=== PATIENT | male | born 1945 | race Caucasian/White ===

== ENCOUNTER 2020-11-28 22:39 | Observation (INO) | payer OTHER ==
[~2020-11-28] VITALS: Ht 182.9 cm; Wt 98.9 kg
[2020-11-28 22:40] VITALS: BP 140/83
[2020-11-28] MEDS ORDERED: PRINIVIL20 M1 PO (22:46)
[2020-11-28] MEDS ORDERED: SIMVASTATIN80 MG PO (22:46)
[2020-11-28] MEDS ORDERED: TRIAMTERENE/HCT1 CA1 PO (22:47)
[2020-11-28 23:01] LABS: HEMATOCRIT 46.2 % (42.0-52.0); MCH 31.7 pg (26.0-34.0); MCHC 34.7 g/dL (28.0-37.0); MCV 91.3 fL (80.0-100.0); MPV 8.2 fl. (7.2-11.1); NUCLEATED RBCS 0 /100WBC; PLATELET COUNT* 283 thou/uL (150-400); RBC 5.06 mil/uL (4.50-6.00); RDW-CV 12.9 % (10.5-14.5); WBC 19.3 thou/uL (4.0-11.0)
[2020-11-28 23:11] LABS: PROTIME 10.5 Seconds (9.20-11.50)
[2020-11-28 23:17] LABS: ALBUMIN 3.8 g/dL (3.4-5.0); CALCIUM 9.9 mg/dL (8.5-10.1); CREATININE 1.1 mg/dL (0.6-1.3); MAGNESIUM 1.9 mg/dL (1.8-2.4); POTASSIUM 3.5 mmol/L (3.5-5.1); TOTAL BILIRUBIN 1.5 mg/dL (<0.1-1.0); TOTAL PROTEIN 7.4 g/dL (6.4-8.2)
[2020-11-28 23:25] LABS: ABSOLUTE MONOCYTES 0.8 thou/uL (0.0-1.2); ABSOLUTE NEUTROPHILS 17.6 thou/uL (1.6-8.1); PLATELET ESTIMATE ADEQUATE; TOXIC GRANULATION 1+
[2020-11-28 23:26] LABS: CLUMPED PLTS OCCASIONAL
[2020-11-29 02:01] LABS: URINE BILIRUBIN NEGATIVE (Negative); URINE BLOOD NEGATIVE (Negative); URINE CLARITY CLEAR; URINE COLOR YELLOW; URINE GLUCOSE-RANDOM NEGATIVE (Negative); URINE KETONES 2+ (Negative); URINE LEUKOCYTES-REFLEX NEGATIVE (Negative); URINE NITRITE-REFLEX NEGATIVE (Negative); URINE PROTEIN NEGATIVE (Negative); URINE SPECIFIC GRAVITY 1.015 (1.005-1.030); URINE UROBILINOGEN 0.2 E.U./dl (0.2-1.0)
[2020-11-29 02:15] VITALS: BP 158/95
[2020-11-29 03:35] VITALS: BP 155/99
--- NOTE | 2020-11-29 05:46 | NUR ---
PT ARRIVED TO THE UNIT AT 0230 WITH FAMILY. A&O X 4. FENTANYL GIVEN FOR PAIN. NO C/O NAUSEA. PT UP TO THE BR WITH SBA. STEADY GAIT. HAD LIQUIDY BM THIS MORNING. NPO. IVF INFUISING ORDERED. CALL LIGHT WITHIN REACH. WILL CONTINUE TO MONITOR.
[2020-11-29] MEDS ORDERED: FLAGYL500 M1 PO (09:14)
[2020-11-29] MEDS ORDERED: CIPRO500 M1 PO (09:14)
[2020-11-29 09:15] VITALS: BP 118/66
--- NOTE | 2020-11-29 11:30 | EKG ---
[place] [address] ELECTROCARDIOGRAM REPORT Name: DIONI SHANKS Room: [address] M.R.#: [id number] Admission: 11/29/20 Attend Phys: Ethan Brink, Discharge: Date of : 45 Date of Service: 11/28/20 2245 Report #: [id number] THIS REPORT FOR: //name// [facility] ED Test Date: 2020-11-28 Test Time: 22:45:24 Pat Name: DIONI SHANKS Department: Room: [address] Gender: M Lead Front Desk Agent: : [id number] Requested By: Renetta Quevedo Order Number: [id number] Reading MD: Amauri Eng Measurements Intervals [place] Rate: 74 P: 52 DE: 189 QRS: -33 QRSD: 100 T: 39 QT: 396 QTc: 440 Interpretive Statements Sinus rhythm Ventricular premature complex Inferior infarct, old possible Baseline wander in lead(s) III,V4,V6 Compared to ECG 11/21/2008 13:13:52 Ventricular premature complex(es) now present Myocardial infarct finding now present Electronically Signed On 11-29-2020 11:30:41 CDT by Amauri Eng [email or web address] <ELECTRONICALLY SIGNED> By: Amauri Eng MD, [facility] 11/29/20 1130 2245 Amauri Eng MD, [facility] /EPI
[2020-11-29 12:51] VITALS: BP 118/66
--- NOTE | 2020-11-29 13:36 | NUR ---
PT AO X4 WITH COMPLAINT OF ABD PAIN DIMISHED SINCE BM THIS AM. PT AND FAMILY GIVEN DISCHARGE INSRUCTIONS AND ALL QUESTIONS ANSWERED. PRESCRIPTION GIVEN AND INSTRUCTIONS GIVEN TO TAKE TO PHARMACY TO GET FILLED. PT WAS TAKEN BY [facility] STAFF TO PRIVATE VEHICLE IN GOOD CONDITION
[2020-11-29 14:05] VITALS: BP 118/66
== END 2020-11-29 13:45 | disposition home or self-care (01) ==
LOC: M.ERS 22:39 → M.ORTHSURG 11-29 01:19 → M.TBA-ER 11-29 01:19 → M.ORTHSURG 11-29 01:19
PROVIDERS: Emergency Medicine; ADMIT Internal Medicine; ATTEND Internal Medicine
DX: K56.609 Unspecified intestinal obstruction, unspecified as to partial versus complete obstruction (principal); Z20.822 Contact with and (suspected) exposure to COVID-19; K52.9 Noninfective gastroenteritis and colitis, unspecified; D72.829 Elevated white blood cell count, unspecified; K82.8 Other specified diseases of gallbladder; E78.00 Pure hypercholesterolemia, unspecified; I10 Essential (primary) hypertension; Z79.899 Other long term (current) drug therapy